=== PATIENT | female | born 1965 | race Caucasian/White ===

== ENCOUNTER → 2018-03-03 | Outpatient (CLI) | payer OTHER ==
--- NOTE | 2018-03-03 16:31 | CT ---
EXAMINATION TYPE: CT brain wo con DATE OF EXAM: 03/03/2018 COMPARISON: NONE HISTORY: Trauma 2 weeks ago. Complains of continued headache and dizziness CT DLP: 1054.[address] of the brain was performed. The ventricles, basal cisterns and sulci overlying the cerebral convexities demonstrate mild enlargem ent. There is no evidence for intracranial hemorrhage or sulcal effacement. There is decreased attenuation about the periventricular white matter and deep white matter of both c erebral hemispheres, compatible with chronic small vessel ischemia. Differential diagnosis does inclu de demyelination. No mass effects are seen.No midline shift. Osseous calvarium is intact. Mucosal thickening right maxillary sinus. If symptoms persist consider MRI. IMPRESSION: 1. Age related atrophic and chronic small vessel ischemic change without acute intracranial process s een at this time.
== END | disposition home or self-care (01) ==
LOC: RADCTMAIN 16:03
PROVIDERS: ATTEND Family Medicine
DX: G31.1 Senile degeneration of brain, not elsewhere classified (principal); I67.82 Cerebral ischemia
CPT/HCPCS: 70450

== ENCOUNTER → 2018-04-01 | Outpatient (CLI) | payer OTHER ==
--- NOTE | 2018-04-01 14:55 | US ---
EXAMINATION TYPE: US thyroid st tissue head/neck DATE OF EXAM: 04/01/2018 COMPARISON: NONE CLINICAL HISTORY: E04.1 Nontoxic single thyroid nodule. GLAND SIZE: Right Lobe: 5.2 x 2.0 x 1.8 cm Overall Parenchyma: heterogenous Left Lobe: 4.7 x 1.5 x 1.2 cm Overall Parenchyma: heterogeneous Isthmus Thickness: 0.3 cm NODULES RIGHT: # of nodules measured on right: 1 1. 1.0 X 0.9 x 0.9 cm echogenic solid nodule at the upper pole with well-defined margins. This nod ule is wider than tall and shows intranodular vascularity. No prior LEFT: # of nodules measured on left: 0 ISTHMUS: # of nodules measured in the isthmus: 0 Bilateral neck scanned, no evidence of lymphadenopathy. Subcentimeter nodularity suspected within the bilateral thyroid gland IMPRESSION: There is a solid right thyroid nodule present, consider multinodular goiter.
== END | disposition home or self-care (01) ==
LOC: RADUSWWP 14:13
PROVIDERS: ATTEND Family Medicine
DX: E04.1 Nontoxic single thyroid nodule (principal)
CPT/HCPCS: 76536

== ENCOUNTER → 2018-05-12 | Outpatient (CLI) | payer OTHER ==
--- NOTE | 2018-05-12 18:55 | CT ---
EXAMINATION TYPE: CT abdomen pelvis w con DATE OF EXAM: 05/12/2018 COMPARISON: None HISTORY: Left lower quadrant pain, vomiting and blood in stool. CT DLP: 1530 mGycm Automated exposure control for dose reduction was used. TECHNIQUE: Helical acquisition of images was performed from the lung bases through the pelvis. CONTRAST: Performed without Oral Contrast and with IV Contrast, patient injected with 35 mL of Isovue 300. FINDINGS: Lung bases are clear of infiltrate. There is no pleural effusion. Heart size is normal. Liver and spleen appear normal. Gallbladder appears normal. Bile ducts are not dilated. There is no p ancreatic mass. I see no intestinal wall thickening. There are no dilated loops. Bladder distends smo othly. There is no pelvic mass. There is hysterectomy. Bony structures are intact. There is no ascite s. There are no dilated bowel loops. Appendix is not seen. There is no sign of appendicitis. There is very minimal fat stranding at the splenic flexure of the colon. There is mild wall thickening at the splenic flexure. There is no adrenal mass. Kidneys have normal size and contour. There is no hydronephrosis. Ureters a re not dilated. There is small umbilical hernia that contains fat. IMPRESSION: THERE IS SOME SUBTLE FAT STRANDING AROUND THE SPLENIC FLEXURE OF THE COLON AND MINIMAL WALL THICKENIN G THAT IS SUGGESTIVE OF NONSPECIFIC MILD COLITIS.
== END | disposition home or self-care (01) ==
LOC: RADCTMAIN 17:49
PROVIDERS: ATTEND Family Medicine
DX: R93.5 Abnormal findings on diagnostic imaging of other abdominal regions, including retroperitoneum (principal)
CPT/HCPCS: 74177; Q9967

== ENCOUNTER → 2019-02-07 | Outpatient (CLI) | payer OTHER ==
[2019-02-07 08:26] LABS: Basophils % (A) 1 %; Eosinophils # (A) 0.1 k/uL (0-0.7); Eosinophils % (A) 1 %; HGB 14.2 gm/dL (11.4-16.0); Lymphocytes # (A) 1.8 k/uL (1.0-4.8); Lymphocytes % (A) 36 %; MCH 28.5 pg (25.0-35.0); MCHC 32.2 g/dL (31.0-37.0); MCV 88.7 fL (80.0-100.0); Mean Platelet Volume 7.5; Monocytes # (A) 0.2 k/uL (0-1.0); Monocytes % (A) 4 %; Neutrophils # (A) 2.8 k/uL (1.3-7.7); Neutrophils % (A) 55 %; Platelet Count 215 k/uL (150-450); RBC 4.96 m/uL (3.80-5.40); RDW 14.2 % (11.5-15.5); WBC 5.1 k/uL (3.8-10.6)
[2019-02-07 08:32] LABS: ALT 19 U/L (9-52); AST 19 U/L (14-36); Albumin 4.6 g/dL (3.5-5.0); Alkaline Phosphatase 108 U/L (38-126); Anion Gap 8 mmol/L; Blood Urea Nitrogen 15 mg/dL (7-17); Calcium 9.9 mg/dL (8.4-10.2); Carbon Dioxide 29 mmol/L (22-30); Chloride 107 mmol/L (98-107); Cholesterol 211 mg/dL (<200); Glucose 102 mg/dL (74-99); HDL Cholesterol 38 mg/dL (40-60); LDL Cholesterol,Calculated 149 mg/dL (0-99); Magnesium 2.3 mg/dL (1.6-2.3); Potassium 4.7 mmol/L (3.5-5.1); Sodium 144 mmol/L (137-145); Total Bilirubin 0.5 mg/dL (0.2-1.3); Total Protein 7.5 g/dL (6.3-8.2); Triglycerides 122 mg/dL (<150)
--- NOTE | 2019-02-07 08:58 | CT ---
EXAMINATION TYPE: CT brain wo con DATE OF EXAM: 02/07/2019 COMPARISON: 03/03/2018 HISTORY: 53-year-old female with dizziness, head trauma TECHNIQUE: Examination was done in axial plane without intravenous contrast. Coronal and sagittal r econstructions performed. CT DLP: 1121 mGycm Automated exposure control for dose reduction was used. FINDINGS: There is no evidence of acute intracranial hemorrhage, acute ischemic changes, mass, mass-effect, or extra-axial fluid collection. There is no effacement of cerebral sulci or basal subarachnoid cister ns. There is no hydrocephalus. There is no midline shift. Rahman-white matter distinction is preserv ed. There is mild bifrontal cortical atrophy. Paranasal sinuses and mastoid air cells and size. Orbits and globes are intact. IMPRESSION: Similar mild bifrontal atrophy. No acute intracranial abnormality seen.
== END | disposition home or self-care (01) ==
LOC: RADCTMAIN 07:54
PROVIDERS: ATTEND Family Medicine
DX: G31.9 Degenerative disease of nervous system, unspecified (principal); R42 Dizziness and giddiness; R00.2 Palpitations; I10 Essential (primary) hypertension
CPT/HCPCS: 70450; 80053; 80061; 83735; 84443; 85025

== ENCOUNTER → 2020-06-05 | Outpatient (CLI) | payer OTHER ==
--- NOTE | 2020-06-05 14:57 | MR ---
EXAMINATION TYPE: MR lumbar spine wo con DATE OF EXAM: 06/05/2020 COMPARISON: None HISTORY: 54-year-old female cauda equina compression, Low back pain/numbness into bilateral lower ext remities TECHNIQUE: Multiplanar, multisequence images of the lumbar spine were acquired. FINDINGS: Vertebral body heights are preserved. Hypertrophic facet arthropathy throughout. There is degenerative grade 1 retrolisthesis at L1/L2 and grade 1 anterolisthesis at L4-L5. Remaining alignment is maintained. No suspicious bone marrow placement. Conus medullaris is normal. No prevertebral or paravertebral soft tissue abnormality. Scattered mild degenerative disc disease with variable disc desiccation and disc bulging. At T12-L1, mild diffuse disc bulge is present without significant canal or foraminal stenosis. At L1-L2, there is facet arthropathy with bulging disc and trace grade 1 retrolisthesis. No significa nt canal or foraminal stenosis. At L2-L3, minimal disc bulge. Facet arthropathy without any significant canal or foraminal stenosis. At L3-L4, facet arthropathy without significant canal or foraminal stenosis. At L4-L5, diffuse disc bulge with advanced hypertrophic facet arthropathy and grade 1 anterolisthesis . Disc material may abut the traversing left L5 nerve root. There is [id number] left and mild r ight neural foraminal stenosis. No significant spinal canal stenosis. At L5-S1, there is diffuse disc bulge with hypertrophic facet arthropathy. Disc material closely appr oaches the bilateral traversing S1 nerve roots. Possible contact of the left-sided nerve root. Mild o verall narrowing of the spinal canal. Mild bilateral neural foraminal narrowing. IMPRESSION: 1. Mild multilevel degenerative disc disease but with multilevel advanced hypertrophic facet arthropa thy. 2. Degenerative grade 1 retrolisthesis L1-L2 and grade 1 anterolisthesis L4-L5. 3. No large focal disc herniation or significant spinal canal stenosis. 4. At L4-L5, changes result in mild to moderate left and mild right neural foraminal stenosis. Disc m aterial may also abut the traversing left L5 nerve root. 5. At L5-S1, there is mild bilateral neural foraminal narrowing and disc material closely approaches the bilateral traversing S1 nerve roots.
== END | disposition home or self-care (01) ==
LOC: RADMRIMAIN 11:46
PROVIDERS: ATTEND Family Medicine
DX: M48.061 Spinal stenosis, lumbar region without neurogenic claudication (principal); M48.07 Spinal stenosis, lumbosacral region; M43.16 Spondylolisthesis, lumbar region; M51.36 Other intervertebral disc degeneration, lumbar region; M47.816 Spondylosis without myelopathy or radiculopathy, lumbar region
CPT/HCPCS: 72148

== ENCOUNTER → 2020-10-29 | Outpatient (CLI) | payer OTHER ==
--- NOTE | 2020-10-30 10:41 | MM ---
Reason for exam: screening (asymptomatic). Last mammogram was performed 14 years ago. History: Patient is postmenopausal. Family history of breast cancer in aunt and breast cancer in cousin. Took estrogen for 8 years. Physical Findings: A clinical breast exam by your physician is recommended on an annual basis and results should be correlated with mammographic findings. MG Screening Mammo w CAD Bilateral CC and MLO view(s) were taken. Prior study comparison: September 17, 2014, mammogram, performed at [facility]. May 06, 2011, mammogram, performed at [facility]. There are scattered fibroglandular densities. There is no discrete abnormality. No significant changes when compared with prior studies. ASSESSMENT: Negative, BI-RAD 1 RECOMMENDATION: Routine screening mammogram of both breasts in 1 year.
== END | disposition home or self-care (01) ==
LOC: RADMAMWWP 12:39
PROVIDERS: ATTEND Family Medicine
DX: Z12.31 Encounter for screening mammogram for malignant neoplasm of breast (principal)
CPT/HCPCS: 77067

== ENCOUNTER 2020-12-18 13:47 | Emergency (ER) | payer OTHER ==
[2020-12-18] MEDS ORDERED: KETOROLAC 15 MG/ML 1 ML VIAL IVP STA (14:57)
[2020-12-18] MEDS ORDERED: SODIUM CHLORIDE 0.9% 1,000 ML IV STA (14:57)
--- NOTE | 2020-12-18 15:18 | ED ---
Abdominal Pain HPI - General Chief Complaint: Abdominal Pain Stated Complaint: right side pain,fever Time Seen by Provider: 12/18/20 14:53 Source: patient Mode of arrival: ambulatory Limitations: no limitations - History of Present Illness Initial Comments: Patient is a 55-year-old female presenting to the emergency Department with complaints of right sided side pain for the past 2 weeks. He states over the past 2 days she has noticed a low-grade fever on and off. She does admit to some mild nausea no vomiting or diarrhea. She describes the pain as on the right side, near her lateral ribs. No anterior abdominal pain. She denies any falls or trauma. She admits to history of hysterectomy, no other abdominal surgeries. She states she's never had a kidney stone. She denies any dysuria or hematuria. She has no further complaints at this time. Upon arrival to the ER, her vital signs are stable. - Related Data Home Medications Medication Instructions Recorded Confirmed Gabapentin [Neurontin] 100 mg PO DAILY 12/18/20 12/18/20 hydroCHLOROthiazide [Hydrodiuril] 12.5 mg PO Q48H 12/18/20 12/18/20 lisinopriL 20 mg PO DAILY 12/18/20 12/18/20 Allergies Allergy/AdvReac Type Severity Reaction Status Date / Time banana Allergy Rapid Verified 12/18/20 16:48 Heart Rate latex Allergy Rash/Hives Verified 12/18/20 16:48 Review of Systems ROS Statement: Those systems with pertinent positive or pertinent negative responses have been documented in the HPI. ROS Other: All systems not noted in ROS Statement are negative. Past Medical History Past Medical History: Hypertension Additional Past Medical History / Comment(s): IBS History of Any Multi-Drug Resistant Organisms: None Reported Past Surgical History: Hysterectomy Past Psychological History: No Psychological Hx Reported Smoking Status: Never smoker Past Alcohol Use History: None Reported Past Drug Use History: None Reported General Exam - General Exam Comments Initial Comments: GENERAL: Patient is well-developed and well-nourished. Patient is nontoxic and in no acute distress. HEAD: Atraumatic, normocephalic. EYES: Pupils equal round and reactive to light, extraocular movements intact, sclera anicteric, conjunctiva are normal. Eyelids were unremarkable. ENT: TMs normal, nares patent, oropharynx clear without exudates. Moist mucous membranes. NECK: Normal range of motion, supple without lymphadenopathy or JVD. LUNGS: Unlabored respirations. Breath sounds clear to auscultation bilaterally and equal. No wheezes rales or rhonchi. HEART: Regular rate and rhythm without murmurs, rubs or gallops. ABDOMEN: Soft, right side, lateral right rib pain, mild right flank pain, no abdominal pain, normoactive bowel sounds. No guarding, no rebound. No masses appreciated. : Deferred MUSCULOSKELETAL: Normal extremities with adequate strength and normal range of motion, no pitting or edema. No clubbing or cyanosis. NEUROLOGICAL: Patient is alert and oriented x 3. Motor and sensory are also intact. Cranial nerves II through XII grossly intact. Symmetrical smile. Normal speech, normal gait. PSYCH: Normal mood, normal affect. SKIN: Warm, Dry, normal turgor, no rashes or lesions noted. Limitations: no limitations Course Vital Signs 12/18/20 12/18/20 14:36 17:18 Temperature 98.9 F 98.2 F Pulse Rate 70 77 Respiratory 20 18 Rate Blood Pressure 112/70 120/66 O2 Sat by Pulse 98 98 Oximetry Medical Decision Making - Medical Decision Making Patient is a 55-year-old female here for right sided lateral rib pain has been increasing over the past 2 weeks. No injuries or trauma, vital signs are stable. No anterior abdominal pain on exam. Her vital signs are stable. Labs are unremarkable, no acute process seen, normal white count. Urine is normal. CT the abdomen and pelvis showed no acute process identified, no kidney stones. Patient received fluids and some Toradol reports improvement in her symptoms. Discussed these findings with the patient. Her symptoms could be related to muscle skeletal irritation at the ribs, there is no rash to indicate shingles. I recommended ibuprofen or Aleve for discomfort, heat to the area. She can follow up with her primary care physician. She is in agreement with this plan of care. Return parameters were discussed with the patient she verbalized understanding. Case discussed with Dr. Robles. - Lab Data Result diagrams: 12/18/20 15:54 12/18/20 15:54 Lab Results 12/18/20 12/18/20 12/18/20 Range/Units 15:31 15:31 15:54 WBC (3.8-10.6) k/uL RBC (3.80-5.40) m/uL Hgb (11.4-16.0) gm/dL Hct (34.0-46.0) % MCV (80.0-100.0) fL MCH (25.0-35.0) pg MCHC (31.0-37.0) g/dL RDW (11.5-15.5) % Plt Count (150-450) k/uL MPV Neutrophils % % Lymphocytes % % Monocytes % % Eosinophils % % Basophils % % Neutrophils # (1.3-7.7) k/uL Lymphocytes # (1.0-4.8) k/uL Monocytes # (0-1.0) k/uL Eosinophils # (0-0.7) k/uL Basophils # (0-0.2) k/uL PT 10.1 (9.0-12.0) sec INR 0.9 (<1.2) APTT 20.3 L (22.0-30.0) sec Sodium 139 (137-145) mmol/L Potassium 4.4 (3.5-5.1) mmol/L Chloride 104 (98-107) mmol/L Carbon Dioxide 27 (22-30) mmol/L Anion Gap 8 mmol/L BUN 13 (7-17) mg/dL Creatinine 0.69 (0.52-1.04) mg/dL Est GFR (CKD-EPI)AfAm >90 (>60 ml/min/1.73 sqM) Est GFR (CKD-EPI)NonAf >90 (>60 ml/min/1.73 sqM) Glucose 86 (74-99) mg/dL Calcium 9.0 (8.4-10.2) mg/dL Total Bilirubin 0.5 (0.2-1.3) mg/dL AST 33 (14-36) U/L ALT 18 (4-34) U/L Alkaline Phosphatase 99 (38-126) U/L Total Protein 6.9 (6.3-8.2) g/dL Albumin 4.2 (3.5-5.0) g/dL Lipase 81 (23-300) U/L Urine Color Light Yellow Urine Appearance Clear (Clear) Urine pH 5.0 (5.0-8.0) Ur Specific [place] 1.008 (1.001-1.035) Urine Protein Negative (Negative) Urine Glucose (UA) Negative (Negative) Urine Ketones 1+ H (Negative) Urine Blood Negative (Negative) Urine Nitrite Negative (Negative) Urine Bilirubin Negative (Negative) Urine Urobilinogen <2.0 (<2.0) mg/dL Ur Leukocyte Esterase Negative (Negative) 12/18/20 Range/Units 15:54 WBC 3.3 L (3.8-10.6) k/uL RBC 4.60 (3.80-5.40) m/uL Hgb 13.8 (11.4-16.0) gm/dL Hct 41.8 (34.0-46.0) % MCV 90.7 (80.0-100.0) fL MCH 30.0 (25.0-35.0) pg MCHC 33.0 (31.0-37.0) g/dL RDW 13.4 (11.5-15.5) % Plt Count 128 L (150-450) k/uL MPV 7.8 Neutrophils % 55 % Lymphocytes % 33 % Monocytes % 9 % Eosinophils % 1 % Basophils % 1 % Neutrophils # 1.8 (1.3-7.7) k/uL Lymphocytes # 1.1 (1.0-4.8) k/uL Monocytes # 0.3 (0-1.0) k/uL Eosinophils # 0.0 (0-0.7) k/uL Basophils # 0.0 (0-0.2) k/uL PT (9.0-12.0) sec INR (<1.2) APTT (22.0-30.0) sec Sodium (137-145) mmol/L Potassium (3.5-5.1) mmol/L Chloride (98-107) mmol/L Carbon Dioxide (22-30) mmol/L Anion Gap mmol/L BUN (7-17) mg/dL Creatinine (0.52-1.04) mg/dL Est GFR (CKD-EPI)AfAm (>60 ml/min/1.73 sqM) Est GFR (CKD-EPI)NonAf (>60 ml/min/1.73 sqM) Glucose (74-99) mg/dL Calcium (8.4-10.2) mg/dL Total Bilirubin (0.2-1.3) mg/dL AST (14-36) U/L ALT (4-34) U/L Alkaline Phosphatase (38-126) U/L Total Protein (6.3-8.2) g/dL Albumin (3.5-5.0) g/dL Lipase (23-300) U/L Urine Color Urine Appearance (Clear) Urine pH (5.0-8.0) Ur Specific [place] (1.001-1.035) Urine Protein (Negative) Urine Glucose (UA) (Negative) Urine Ketones (Negative) Urine Blood (Negative) Urine Nitrite (Negative) Urine Bilirubin (Negative) Urine Urobilinogen (<2.0) mg/dL Ur Leukocyte Esterase (Negative) Disposition Clinical Impression: Rib pain on right side Disposition: HOME SELF-CARE Condition: Stable Instructions (If sedation given, give patient instructions): Costochondritis (ED) Additional Instructions: Please return to the Emergency Department if symptoms worsen or any other concerns. Lab work, urine analysis, CT scan was all normal today. I recommended ibuprofen or Aleve for any discomfort, may also try heat to the area. Follow-up with your regular family doctor. Is patient prescribed a controlled substance at d/c from ED?: No Referrals: Charles Dinero MD [Primary Care Provider] - 1-2 days Time of Disposition: 17:00
[2020-12-18 15:45] LABS: Appearance,Urine Clear (Clear); Bilirubin,Urine Negative (Negative); Blood,Urine Negative (Negative); Color,Urine Light Yellow; Glucose,Urine (UA) Negative (Negative); Ketones,Urine 1+ (Negative); Nitrite,Urine Negative (Negative); Protein,Urine Negative (Negative); Specific Gravity,Urine 1.008 (1.001-1.035); Urobilinogen,Urine <2.0 mg/dL (<2.0)
--- NOTE | 2020-12-18 15:45 | CT ---
EXAMINATION TYPE: CT abdomen pelvis wo con DATE OF EXAM: 12/18/2020 COMPARISON: May 12, 2018 HISTORY: right sided flank pain with nausea CT DLP: 936.2 mGycm Examination of the solid and hollow viscera is limited given the lack of contrast. FINDINGS: LUNG BASES: No evidence for nodule. No evidence for infiltrate. LIVER/GB: The gallbladder is unremarkable. No space-occupying hepatic lesion. PANCREAS: No pancreatic mass identified. No inflammatory process seen. SPLEEN: No evidence for splenomegaly. No intrasplenic lesions seen. ADRENALS: No adrenal nodules identified. No evidence for thickening. KIDNEYS: No evidence for renal mass. No nephrolithiasis. No hydronephrosis. BOWEL: Normal appendix is not visualized. No evidence of bowel obstruction. No inflammatory process. Lymph nodes: No evidence for adenopathy greater than 1 cm. Abdominal aorta: Atheromatous changes seen. No evidence for aneurysm. Genital organs: No significant abnormality. Other: No significant abnormality. IMPRESSION: NO ACUTE PROCESS IDENTIFIED AT THIS TIME.
[2020-12-18 15:46] LABS: Leukocyte Esterase,Urine Negative (Negative)
[2020-12-18 16:04] LABS: INR 0.9 (<1.2); Partial Thromboplastin Time 20.3 sec (22.0-30.0); Prothrombin Time 10.1 sec (9.0-12.0)
[2020-12-18 16:23] LABS: ALT 18 U/L (4-34); AST 33 U/L (14-36); African American GFR (CKD) >90 (>60 ml/min/1.73 sqM); Albumin 4.2 g/dL (3.5-5.0); Alkaline Phosphatase 99 U/L (38-126); Anion Gap 8 mmol/L; Blood Urea Nitrogen 13 mg/dL (7-17); Carbon Dioxide 27 mmol/L (22-30); Chloride 104 mmol/L (98-107); Glucose 86 mg/dL (74-99); Lipase 81 U/L (23-300); Non-African American GFR(CKD) >90 (>60 ml/min/1.73 sqM); Sodium 139 mmol/L (137-145); Total Bilirubin 0.5 mg/dL (0.2-1.3); Total Protein 6.9 g/dL (6.3-8.2)
[2020-12-18 16:24] LABS: Potassium 4.4 mmol/L (3.5-5.1)
[2020-12-18 16:37] LABS: Basophils % (A) 1 %; Eosinophils % (A) 1 %; HCT 41.8 % (34.0-46.0); HGB 13.8 gm/dL (11.4-16.0); Lymphocytes # (A) 1.1 k/uL (1.0-4.8); Lymphocytes % (A) 33 %; MCV 90.7 fL (80.0-100.0); Mean Platelet Volume 7.8; Monocytes # (A) 0.3 k/uL (0-1.0); Monocytes % (A) 9 %; Neutrophils # (A) 1.8 k/uL (1.3-7.7); Neutrophils % (A) 55 %; Platelet Count 128 k/uL (150-450); RDW 13.4 % (11.5-15.5); WBC 3.3 k/uL (3.8-10.6)
[2020-12-18 17:19] VITALS: BP 120/66; PULSE 77; RESP 18; TEMP 98.2
== END 2020-12-18 17:18 | disposition home or self-care (01) ==
LOC: EC 13:47
DX: R07.81 Pleurodynia (principal); R11.0 Nausea; Z91.018 Allergy to other foods; Z91.040 Latex allergy status; I10 Essential (primary) hypertension; Z79.899 Other long term (current) drug therapy; Z90.49 Acquired absence of other specified parts of digestive tract
CPT/HCPCS: 36415; 80053; 83690; 85025; 85610; 85730; 81003; 74176; 99284; 96374; 96361; J1885